=== PATIENT | male | born 1975 ===

== ENCOUNTER 2017-04-26 20:31 | Emergency (ER) | payer OTHER, SELFPAY ==
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
[2017-04-26] MEDS ORDERED: HYDROcodone/Acetaminophen 5/325 mg Tablet ONE (21:53)
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
== END 2017-04-26 23:24 | disposition home or self-care (01) ==
LOC: ERS 20:31
DX: S50.312A Abrasion of left elbow, initial encounter (principal); M79.1 Myalgia; V29.9XXA Motorcycle rider (driver) (passenger) injured in unspecified traffic accident, initial encounter
CPT/HCPCS: 70450; 71045; 72100; 72125; 72170; 72220